=== PATIENT | male | born 1970 | race African-American/Black ===

== ENCOUNTER 2017-09-21 19:22 | Emergency (ER) | payer BC, OTHER ==
[2017-09-21] MEDS: DIPHTH,PERTUSS(ACELL),TET TOX 0.5 ML DISP.SYRIN. VAX IM (21:22)
== END 2017-09-21 21:17 | disposition home or self-care (01) ==
LOC: ER 21:17
DX: S90.862A Insect bite (nonvenomous), left foot, initial encounter (principal); L02.612 Cutaneous abscess of left foot; I11.0 Hypertensive heart disease with heart failure; E78.00 Pure hypercholesterolemia, unspecified; E11.9 Type 2 diabetes mellitus without complications; I50.9 Heart failure, unspecified; F10.20 Alcohol dependence, uncomplicated; W57.XXXA Bitten or stung by nonvenomous insect and other nonvenomous arthropods, initial encounter; Y93.89 Activity, other specified; Y99.8 Other external cause status; Y92.89 Other specified places as the place of occurrence of the external cause
CPT/HCPCS: 10060; 90471; 90715; 99283-25

== ENCOUNTER 2019-02-25 17:31 | Emergency (ER) | payer BC ==
[~2019-02-25] VITALS: Ht 165.1 cm; Wt 68.0 kg
[~2019-02-25 17:31] MED LIST: ATOR10TA60 PO; CARV3.1210 PO; LISI1TAB23 PO; MUPI15CR TP
[2019-02-25 17:38] VITALS: BP 138/89
--- NOTE | 2019-02-25 17:47 | PHYS DOC ---
Past Medical History Past Medical History: CHF, Diabetes-Type II, High Cholesterol, Hypertension Additional Past Medical Histor: BRADYCARDIA Past Surgical History: Angioplasty Alcohol Use: Heavy Drug Use: None Adult General Chief Complaint Chief Complaint: LACERATION/AVULSION HPI HPI Patient is a 48 year old male patient who presents to the ED today with left pinky finger laceration, patient was working on a furnace when a piece of metal cut him. Patient is right-handed. Review of Systems Review of Systems Constitutional: Denies fever or chills [] Musculoskeletal: Denies back pain or joint pain [] Integument: Reports left pinky finger laceration Neurologic: Denies headache, focal weakness or sensory changes [] All other systems were reviewed and found to be within normal limits, except as documented in this note. Current Medications Current Medications Current Medications Medications (Trade) Dose Ordered Sig/Amor Start Time Stop Time Status Last Admin Dose Admin Acetaminophen/ Hydrocodone Bitart (Lortab 5/325) 2 tab 1X ONCE 02/25/19 18:00 02/25/19 18:01 DC 02/25/19 17:54 2 TAB Gelatin (Gelfoam Size 100) 1 each 1X ONCE 02/25/19 18:00 02/25/19 18:01 DC 02/25/19 17:59 1 EACH Tranexamic Acid (Cyklokapron) 1,000 mg 1X ONCE 02/25/19 18:00 02/25/19 18:01 DC Allergies Allergies Allergies Coded Allergies Type Severity Reaction Last Updated Verified No Known Drug Allergies 12/28/14 No Physical Exam Physical Exam Constitutional: Well developed, well nourished, no acute distress, non-toxic appearance. [] Skin: The tip of the left pinky finger ventral aspect with a skin avulsion approximately 3 x 1 cm, bleeding is not well-controlled. Pressure was applied. Adequate ulnar sensation to the left pinky finger. +2 left radial pulse. Cap refill less than 2 seconds the left pinky finger. Back: No tenderness, no CVA tenderness. [] Extremities: No tenderness, no cyanosis, no clubbing, ROM intact, no edema. [] Neurologic: Alert and oriented X 3, normal motor function, normal sensory function, no focal deficits noted. [] Psychologic: Affect normal, judgement normal, mood normal. [] Current Patient Data Vital Signs Vital Signs Date Time Temp Pulse Resp B/P (MAP) Pulse Ox O2 Delivery O2 Flow Rate FiO2 02/25/19 17:54 17 97 Room Air 02/25/19 17:38 98.8 88 138/89 (105) 98.8 EKG EKG [] Radiology/Procedures Radiology/Procedures [] Course & Med Decision Making Course & Med Decision Making Pertinent Labs and Imaging studies reviewed. (See chart for details) This is a 48-year-old male patient who presents to the ED today with left pinky finger laceration, patient was accidentally cut with a furnace he was working on. Tetanus is up-to-date. Bleeding is poorly controlled on arrival. Pressure was applied. Dragon Disclaimer Dragon Disclaimer This electronic medical record was generated, in whole or in part, using a voice recognition dictation system. Departure Departure Impression: Primary Impression: Avulsion of skin of finger Disposition: HOME, SELF-CARE Condition: STABLE Referrals: UNKNOWN PCP NAME (PCP) follow up with your doctor in 1-2 weeks Patient Instructions: Finger Avulsion Additional Instructions: You have a skin avulsion of the left pinky finger. Keep the area clean and dry. You can change the dressing in 24 hours. Keep it clean and covered for the first 7 days. You can apply Neosporin to it twice a day until the wound heals. Please take the prescribed antibiotics until completed. Please monitor the area for any worsening condition including but not limited to increased redness, warmth, yellow/odor is drainage from the laceration and return to the ED if they occur. Scripts Cephalexin (CEPHALEXIN) 500 Mg Tablet 1 TAB PO TID, #30 TAB Prov: JOSEPH CYR APRN 02/25/19 Problem Qualifiers Primary Impression: Avulsion of skin of finger Encounter type: initial encounter Qualified Codes: S61.209A - Unspecified open wound of unspecified finger without damage to nail, initial encounter JOSEPH CYR APRN Feb 25, 2019 17:47
[2019-02-25] MEDS ORDERED: GELATIN SPONGE SIZE 100. TP ONE (18:00)
[2019-02-25] MEDS ORDERED: HYDROcodone/APAP 5/325MG 1 TAB TABLET PO ONE (18:00)
[2019-02-25] MEDS ORDERED: TRANEXAMIC ACID 1,000 MG/10 ML VIAL. TOP ONE (18:00)
--- NOTE | 2019-02-25 18:40 | RAD ---
THREE VIEWS LEFT FINGER Clinical History: Pinky finger laceration. Technique: AP view of the hand, as well as lateral and oblique collimated views of the little finger were obtained. Comparison: None. Findings: Bandage material overlies the tip of the little finger. Given this limitation, no radiopaque foreign body is seen. There is no acute fracture or dislocation. The mineralization is normal. The joint spaces are maintained. No soft tissue swelling is appreciated radiographically. IMPRESSION: No acute fracture. Electronically signed by: Sampson Collins MD (02/25/2019 6:37 PM) [id number]
[2019-02-25] MEDS ORDERED: HYDR-3164 PO (18:54)
[2019-02-25] MEDS ORDERED: CEPH500T PO (18:54)
== END 2019-02-25 19:12 | disposition home or self-care (01) ==
LOC: ER 17:31
DX: S61.217A Laceration without foreign body of left little finger without damage to nail, initial encounter (principal); I11.0 Hypertensive heart disease with heart failure; I50.9 Heart failure, unspecified; E78.00 Pure hypercholesterolemia, unspecified; Z98.61 Coronary angioplasty status; F10.20 Alcohol dependence, uncomplicated; Y90.9 Presence of alcohol in blood, level not specified; W26.8XXA Contact with other sharp object(s), not elsewhere classified, initial encounter; Y93.89 Activity, other specified; Y92.89 Other specified places as the place of occurrence of the external cause; Y99.0 Civilian activity done for income or pay
CPT/HCPCS: 73140; 99284